=== PATIENT | male | born 1935 | race Caucasian/White ===

== ENCOUNTER 2019-04-01 11:07 | Inpatient (IN) ==
[2019-04-01 12:02] LABS: Basophils % 0.3 %; Eosinophils % 0.3 %; Hematocrit 41.9 % (37.5-50.1); Hemoglobin 13.5 g/dL (12.9-16.9); Immature Granulocytes % 1.2 % (0-4); Lymphocytes # 0.4 K/mcL (0.6-4.6); Lymphocytes % 3.4 %; Mean Corpuscular HGB Conc 32.2 g/dL (31.6-35.5); Mean Corpuscular Hemoglobin 30.2 pg (28.0-33.3); Mean Corpuscular Volume 93.7 fL (83.0-100.0); Mean Platelet Volume 9.3 fL (9.4-12.4); Monocytes # 0.8 K/mcL (0.0-1.3); Monocytes % 6.3 %; Neutrophils # 10.6 K/mcL (1.6-8.9); Platelet Count 142 K/mcL (140-400); Red Blood Count 4.47 M/mcL (4.19-5.50); Red Cell Distribution Width 13.7 % (11.5-14.5); Segmented Neutrophils % 88.5 %
[2019-04-01 12:11] LABS: Calcium 9.3 mg/dL (8.6-10.3); Potassium 4.2 mEq/L (3.5-5.1)
[2019-04-01 12:16] LABS: Troponin I 0.07 ng/mL (< 0.04)
[2019-04-01] MEDS ORDERED: Isovue-370 500 ML BOTTLE IVP ONE ×2 (12:20→17:35)
[2019-04-01 12:39] LABS: Bilirubin,Urine Negative (Negative); Blood,Urine Large (Negative); Clarity,Urine Clear (Clear); Color,Urine Yellow (Yellow); Glucose,Urine (UA) Normal (Normal); Ketones,Urine Negative (Negative); Leukocyte Esterase,Urine Small (Negative); Nitrite,Urine Negative (Negative); PH,Urine 5.5 pH Units (5.0-8.0); Protein,Urine Negative (Neg-Trace); Specific Gravity,Urine 1.022 (1.010-1.025); Urobilinogen,Urine Normal (Normal)
[2019-04-01 12:40] LABS: Bacteria,Urine None Seen per hpf (None-Few); Hyaline Casts,Urine None Seen per lpf (None-Few); RBC,Urine TNTC per hpf (0-3); Squamous Epithelial Cell,Urine Many per lpf (None-Few)
[2019-04-01] MEDS ORDERED: cefTRIAXone 1,000 MG in Water for inj. (sterile) 10 ML IVP ONE (14:40)
[2019-04-01] MEDS ORDERED: Aspirin 81 MG TAB.CHEW PO STA ×2 (14:40→17:35)
[2019-04-01] MEDS ORDERED: Azithromycin 500 MG in 0.9 % Sodium Chloride 250 ML IVPB ONE (14:40)
[2019-04-01] MEDS ORDERED: Ipratropium/Albuterol Neb 3 ML ONE (15:20)
[2019-04-01] MEDS ORDERED: Ondansetron 4 MG/2 ML VIAL IVP PRN ×2 (15:22→17:35)
[2019-04-01] MEDS ORDERED: Naloxone 0.4 MG/ML INJ IVP PRN ×2 (15:22→17:35)
[2019-04-01] MEDS: Ipratropium/Albuterol Neb 3 ML IH ONE ×2 (15:23→15:45)
[2019-04-01] MEDS ORDERED: *HR* FentaNYL (PF) 100 MCG/2 ML VIAL ONE (15:27)
[2019-04-01] MEDS ORDERED: *HR* Propofol 200 MG/20 ML VIAL IVP ONE (15:27)
[2019-04-01] MEDS ORDERED: Lidocaine -MPF 2% 2 ML VIAL ONE (15:27)
[2019-04-01] MEDS ORDERED: 0.9 % Sodium Chloride 1,000 ML IVC SCH (15:30)
[2019-04-01] MEDS ORDERED: cefTRIAXone 2,000 MG in Water for inj. (sterile) 20 ML IVP SCH ×2 (16:00→18:00)
[2019-04-01] MEDS ORDERED: Azithromycin 500 MG in 0.9 % Sodium Chloride 250 ML IVPB SCH (16:00)
[2019-04-01] MEDS ORDERED: Isovue-300 50ML VIAL ONE (16:04)
[2019-04-01] MEDS ORDERED: Dexamethasone 4 MG/ML VIAL ONE ×2 (16:55→16:57)
[2019-04-01] MEDS ORDERED: Ondansetron 4 MG/2 ML VIAL ONE (16:55)
[2019-04-01] MEDS: 0.9 % Sodium Chloride 1,000 ML IVC SCH (17:58)
[2019-04-01] MEDS: Azithromycin 500 MG in 0.9 % Sodium Chloride 250 ML IVPB SCH (18:17)
[2019-04-01] MEDS ORDERED: methylPREDNISolone 125 MG/2 ML VIAL IVP ONE (18:39)
[2019-04-01] MEDS: *HR* OxyCODONE/APAP 7.5/325 TABLET PO PRN (18:51)
[2019-04-02] MEDS: MethylPREDNISolone 40 MG/ML VIAL IVP SCH ×4 (00:38→17:17)
[2019-04-02] MEDS: 0.9 % Sodium Chloride 1,000 ML IVC SCH ×2 (00:39→11:32)
[2019-04-02 02:21] LABS: Basophils % 0.1 %; Hematocrit 37.8 % (37.5-50.1); Immature Granulocytes % 0.6 % (0-4); Lymphocytes # 0.1 K/mcL (0.6-4.6); Lymphocytes % 1.4 %; Mean Corpuscular HGB Conc 31.7 g/dL (31.6-35.5); Mean Corpuscular Hemoglobin 30.2 pg (28.0-33.3); Mean Corpuscular Volume 95.2 fL (83.0-100.0); Mean Platelet Volume 9.7 fL (9.4-12.4); Monocytes # 0.1 K/mcL (0.0-1.3); Monocytes % 1.3 %; Neutrophils # 9.6 K/mcL (1.6-8.9); Platelet Count 118 K/mcL (140-400); Red Blood Count 3.97 M/mcL (4.19-5.50); Red Cell Distribution Width 13.7 % (11.5-14.5); Segmented Neutrophils % 96.6 %; White Blood Count 9.9 K/mcL (4.3-11.1)
[2019-04-02 02:28] LABS: INR 1.2; Prothrombin Time 13.6 Seconds (9.4-12.1)
[2019-04-02 02:31] LABS: Activated Partial Thrombo Time 30.3 Seconds (26.0-36.0)
[2019-04-02] MEDS: *HR* OxyCODONE/APAP 7.5/325 TABLET PO PRN ×2 (02:35→17:17)
[2019-04-02 02:41] LABS: Albumin 3.4 g/dL (3.5-5.7); Albumin/Globulin Ratio 1.2 (1.1-2.2); Bilirubin,Total 0.3 mg/dL (0.3-1.0); Calcium 8.5 mg/dL (8.6-10.3); Chol/HDL Ratio 3.2 (0-4.9); Globulin 2.9 g/dL (2.4-3.5); Magnesium 2.2 mg/dL (1.6-2.6); Potassium 4.7 mEq/L (3.5-5.1); Total Protein 6.3 g/dL (6.4-8.9)
[2019-04-02 03:04] LABS: Platelet Estimate Slight Decrease (Normal)
[2019-04-02] MEDS: Finasteride 5 MG TABLET PO SCH (07:38)
[2019-04-02] MEDS: Aspirin 81 MG TAB.CHEW PO SCH (07:38)
[2019-04-02] MEDS ORDERED: predniSONE 10 MG TABLET PO SCH (09:00)
[2019-04-02] MEDS: Piperacillin/Tazobactam 3.375 GM in 0.9 % Sodium Chloride Mini Bag 100 ML IVPB SCH (17:18)
[2019-04-02] MEDS: Azithromycin 500 MG in 0.9 % Sodium Chloride 250 ML IVPB SCH (17:18)
[2019-04-03] MEDS: MethylPREDNISolone 40 MG/ML VIAL IVP SCH ×2 (01:03→05:37)
[2019-04-03] MEDS: *HR* OxyCODONE/APAP 7.5/325 TABLET PO PRN ×3 (01:03→16:28)
[2019-04-03 04:12] LABS: Hematocrit 38.9 % (37.5-50.1); Hemoglobin 12.3 g/dL (12.9-16.9); Mean Corpuscular HGB Conc 31.6 g/dL (31.6-35.5); Mean Corpuscular Hemoglobin 29.9 pg (28.0-33.3); Mean Corpuscular Volume 94.6 fL (83.0-100.0); Mean Platelet Volume 9.4 fL (9.4-12.4); Platelet Count 174 K/mcL (140-400); Red Blood Count 4.11 M/mcL (4.19-5.50); Red Cell Distribution Width 13.8 % (11.5-14.5)
[2019-04-03 04:19] LABS: White Blood Count 16.4 K/mcL (4.3-11.1)
[2019-04-03 04:25] LABS: Calcium 8.5 mg/dL (8.6-10.3); Potassium 4.6 mEq/L (3.5-5.1)
[2019-04-03] MEDS: 0.9 % Sodium Chloride 1,000 ML IVC SCH (05:37)
[2019-04-03] MEDS: Piperacillin/Tazobactam 3.375 GM in 0.9 % Sodium Chloride Mini Bag 100 ML IVPB SCH ×3 (05:37→20:41)
[2019-04-03] MEDS: Finasteride 5 MG TABLET PO SCH (08:59)
[2019-04-03] MEDS: Aspirin 81 MG TAB.CHEW PO SCH (08:59)
[2019-04-03] MEDS ORDERED: predniSONE 20 MG TABLET PO SCH (09:00)
[2019-04-03] MEDS ORDERED: Vancomycin (wt based) 1,000 MG VIAL IVPB SCH (09:00)
[2019-04-03] MEDS: Famotidine 20 MG TABLET PO SCH (12:25)
[2019-04-03] MEDS ORDERED: Furosemide 20 MG/2 ML VIAL IVP ONE (15:27)
[2019-04-03] MEDS: Levalbuterol Neb 1.25 MG/3 ML IH PRN (16:44)
[2019-04-03] MEDS: *HR* HYDROcodone/Acet 5/325 mg TABLET PO SCH (20:41)
[2019-04-03] MEDS: Azithromycin 500 MG in 0.9 % Sodium Chloride 250 ML IVPB SCH (21:13)
[2019-04-03] MEDS: Docusate Oral Soln 100 MG/10 ML UDC PO SCH (23:32)
[2019-04-04] MEDS: *HR* HYDROcodone/Acet 5/325 mg TABLET PO SCH ×4 (02:59→11:17)
[2019-04-04 04:15] LABS: Hematocrit 37.3 % (37.5-50.1); Hemoglobin 11.7 g/dL (12.9-16.9); Mean Corpuscular HGB Conc 31.4 g/dL (31.6-35.5); Mean Corpuscular Hemoglobin 30.3 pg (28.0-33.3); Mean Corpuscular Volume 96.6 fL (83.0-100.0); Mean Platelet Volume 9.6 fL (9.4-12.4); Platelet Count 167 K/mcL (140-400); Red Blood Count 3.86 M/mcL (4.19-5.50); Red Cell Distribution Width 14.1 % (11.5-14.5); White Blood Count 13.2 K/mcL (4.3-11.1)
[2019-04-04] MEDS: Levalbuterol Neb 1.25 MG/3 ML IH PRN (04:37)
[2019-04-04 04:39] LABS: Calcium 8.5 mg/dL (8.6-10.3); Potassium 4.5 mEq/L (3.5-5.1)
[2019-04-04] MEDS: Piperacillin/Tazobactam 3.375 GM in 0.9 % Sodium Chloride Mini Bag 100 ML IVPB SCH ×2 (06:06→14:24)
[2019-04-04] MEDS ORDERED: Morphine Sulfate 2 MG/ML SYRINGE IVP ONE (08:37)
[2019-04-04] MEDS: Famotidine 20 MG TABLET PO SCH (08:38)
[2019-04-04] MEDS: Aspirin 81 MG TAB.CHEW PO SCH (08:38)
[2019-04-04] MEDS: Docusate Oral Soln 100 MG/10 ML UDC PO SCH (08:38)
[2019-04-04] MEDS: Finasteride 5 MG TABLET PO SCH (08:38)
[2019-04-04] MEDS ORDERED: MethylPREDNISolone 40 MG/ML VIAL IVP SCH ×2 (09:00→16:00)
[2019-04-04] MEDS ORDERED: 0.9 % Sodium Chloride 250 ML IV ONE (12:50)
[2019-04-04] MEDS ORDERED: 0.9 % Sodium Chloride 250 ML ONE (12:50)
[2019-04-04 13:13] VITALS: BP 93/56
[2019-04-04] MEDS ORDERED: Morphine Sulfate Oral CONC 10 MG/0.5 ML ORAL.SYG PO STA (15:57)
[2019-04-04] MEDS ORDERED: Aminoglycoside Consult 1 EACH MC ONE (17:07)
[2019-04-05 16:23] LABS: A.galactomannan Ag Index 0.03
== END 2019-04-04 17:08 | disposition hospice, home (50) | DRG 853 ==
LOC: EMEROOARM 11:07 → 3ANU 11:07 → EMEROOARM 14:40 → 2NNU 14:50 → EMEROOARM 14:50 → SUATTDRO 15:39 → INTOOBSV 15:39 → 2NNU 15:39
PROVIDERS: ADMIT Urology; ATTEND Internal Medicine